=== PATIENT | female | born 1985 | race African-American/Black ===

== ENCOUNTER 2017-12-02 17:21 | Emergency (ER) | payer BC ==
--- NOTE | 2017-12-02 17:33 | PDOC ---
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 Pt then at home felt palpitations and had chest tightness Pt on brief exam: vss, lcta, ekg - Pt ordered for: labs, tsh, ekg Pt to proceed to the ED *DC/Admit/Observation/Transfer Diagnosis at time of Disposition: Palpitations - Referrals - Patient Instructions - Post Discharge Activity
[2017-12-02 17:35] VITALS: TEMP 98; BMI 24.0
[2017-12-02 17:58] LABS: BASO % 0.5 % (0-2.0); EOS % 0.4 % (0-4.5); HEMATOCRIT 36.8 % (32.4-45.2); HEMOGLOBIN 12.3 GM/dL (10.7-15.3); LYMPH % 25.3 % (8-40); MCHC 33.3 g/dl (32.0-36.0); MEAN CELL VOLUME 90.2 fl (80-96); MEAN PLT VOLUME 8.8 fl (7.5-11.1); MONO % 8.2 % (3.8-10.2); NEUT % 65.6 % (42.8-82.8); PLATELET COUNT 275 K/MM3 (134-434); RBC 4.08 M/mm3 (3.60-5.2); RDW 13.6 % (11.6-15.6); WHITE BLOOD COUNT 8.2 K/mm3 (4.0-10.0)
--- NOTE | 2017-12-02 18:07 | PDOC ---
History of Present Illness - General Chief Complaint: Palpitations Stated Complaint: PALPITATIONS Time Seen by Provider: 12/02/17 17:28 - History of Present Illness Initial Comments: 12/02/17 18:02 Ms. Espinoza is a 32 yo female w/ no pmh who presents for evaluation of weakness and palpitations she describes as feeling "like [her] heart would beat out of [ her] chest." She reports she has had these sporadically for a long time however never was concerned about them until she woke up yesterday morning at around 2am to urinate and had an episode when she got back into the bed. She presented to [facility] yesterday and was evaluated overnight, however left AMA as she reports they refused to have her see a assurance sourcing manager. She then went to [facility] and was given a mobile monitor however presented to ED when she had another episode of palpitations and was subsequently very weak at the time. She endorses having shortness of breath and chest tightness with these episodes however not in between. She has also had diarrhea approximately 7 time today. The patient denies headache and dizziness. Denies fever, nausea, vomit, and constipation. Denies dysuria, frequency, urgency and hematuria. Allergies: NKDA Past History - Past Medical History Allergies/Adverse Reactions: Allergies Allergy/AdvReac Type Severity Reaction Status Date / Time No Known Allergies Allergy Verified 12/02/17 17:28 COPD: No - Suicide/Smoking/Psychosocial Hx Smoking History: Never smoked Have you smoked in the past 12 months: No Information on smoking cessation initiated: No Hx Alcohol Use: No Drug/Substance Use Hx: No Substance Use Type: None Review of Systems - Review of Systems Comments:: 12/02/17 18:07 GENERAL/CONSTITUTIONAL: +Weakness as described. Subjective chills last night. No fever. HEAD, EYES, EARS, NOSE AND THROAT: No change in vision. No ear pain or discharge. No sore throat. CARDIOVASCULAR: +Cardiac symptoms intermittently as described above. RESPIRATORY: No cough, wheezing, or hemoptysis. GASTROINTESTINAL: +Diarrhea as described. No nausea, vomiting, or constipation. GENITOURINARY: No dysuria, frequency, or change in urination. MUSCULOSKELETAL: No joint or muscle swelling or pain. No neck or back pain. SKIN: No rash NEUROLOGIC: No headache, vertigo, or loss of consciousness. ENDOCRINE: No increased thirst. No abnormal weight change HEMATOLOGIC/LYMPHATIC: No anemia, easy bleeding, or history of blood clots. ALLERGIC/IMMUNOLOGIC: No hives or skin allergy. *Physical Exam - Vital Signs Last Vital Signs Temp Pulse Resp BP Pulse Ox 98.0 F 83 18 131/90 100 12/02/17 17:29 12/02/17 17:29 12/02/17 17:29 12/02/17 17:29 12/02/17 17:29 - Physical Exam Comments: 12/02/17 18:09 GENERAL: Awake, alert, and fully oriented, in no acute distress HEAD: No signs of trauma, normocephalic, atraumatic EYES: PERRLA, EOMI, sclera anicteric, conjunctiva clear ENT: Auricles normal inspection, hearing grossly normal, nares patent, oropharynx clear without exudates. Moist mucosa NECK: Normal ROM, supple, no lymphadenopathy, JVD, or masses LUNGS: No distress, speaks full sentences, clear to auscultation bilaterally HEART: Regular rate and rhythm, normal S1 and S2, no murmurs, rubs or gallops, peripheral pulses normal and equal bilaterally. ABDOMEN: Soft, nontender, normoactive bowel sounds. No guarding, no rebound. No masses EXTREMITIES: Normal inspection, Normal range of motion, no edema. No clubbing or cyanosis. NEUROLOGICAL: Cranial nerves II through XII grossly intact. Normal speech, normal gait, no focal sensorimotor deficits SKIN: Warm, Dry, normal turgor, no rashes or lesions noted. ED Treatment Course - LABORATORY CBC & Chemistry Diagram: 12/02/17 17:52 12/02/17 17:52 Medical Decision Making - Medical Decision Making 12/02/17 18:53 Ms. Espinoza is a 32 yo female w/ pmh as described who presents for evaluation of palpitations. Patient labs started and patient placed on monitor. Upon reinterview patient reports being told at previous hospital that her electrolytes were all low and describes being given potassium replacement. Patient signed out to Dr. Mcghee for further evaluation. *DC/Admit/Observation/Transfer Diagnosis at time of Disposition: Palpitations - Referrals - Patient Instructions - Post Discharge Activity
--- NOTE | 2017-12-02 18:32 | PDOC ---
Attending Attestation - HPI HPI: 12/02/17 19:59 The patient is a 32 year old female with no significant PMH who presents to the emergency department with weakness and palpitations she describes as feeling "like [her] heart would beat out of [her] chest." She reports she has had these sporadically for a long time however never was concerned about them until she woke up yesterday morning at around 2am to urinate and had an episode when she got back into the bed. She presented to [facility] yesterday and was evaluated overnight, however left AMA as she reports they refused to have her see a art education professor. She then went to [facility] and was given a mobile monitor however presented to ED when she had another episode of palpitations and was subsequently very weak at the time. She endorses having shortness of breath and chest tightness with these episodes however not in between. She has also had diarrhea approximately 7 time today. The patient denies any other symptoms or complaints. She denies fever, chills, vomit, and constipation. She denies headache and dizziness and other urinary symptoms. Documentation prepared by Carolyn Arias, acting as medical interpreter for Yana Palacios MD. <Carolyn Arias - Last Filed: 12/02/17 19:59> - Resident Resident Name: Yayo Higgins - ED Attending Attestation I have performed the following: I have examined & evaluated the patient, The case was reviewed & discussed with the resident, I agree w/resident's findings & plan, Exceptions are as noted - Physicial Exam PE: 12/04/17 16:59 Gen: aaox3, nad heart: +s1s2 reg dry mm lungs cta b/l abd: soft, nt/nd +bs ext: no c/c/e - Medical Decision Making 12/02/17 18:32 I, Dr. Yana Palacios, DO, attest that this document has been prepared under my direction and personally reviewed by me in its entirety. I further attest, that it accurately reflects all work, treatment, procedures and medical decision -making performed by me. 12/02/17 19:07 a/p: 32yo female with palpitations -admitted to [facility] last night for low potassium - AMA today and went to [facility] -currently on a halter from [facility] -was receiving iv and oral potassium per the patient -still with palpitations today and currently feeling them -will check labs, tsh, electrolytes, ekg, cxr -will monitor and reassess -pt has been having diarrhea which is most likely cause of low potassium 12/02/17 20:37 potassium normal mag normal elevated dimer - will order cta chest to r/o PE as cause of palpitations 12/03/17 00:28 pt states feeling better still with intermittent 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 or acute chest pathology tsh wnl discussed following up with [facility] discussed reasons to return to the ED pt currently tolerating PO in the ED <Yana Palacios - Last Filed: 12/04/17 16:59> Discharge Disposition <Carolyn Arias - Last Filed: 12/02/17 19:59> - Discharge Dispostion Decision to Admit order: No <Yana Palacios - Last Filed: 12/04/17 16:59> - Diagnosis Palpitations - Discharge Dispostion Disposition: HOME Condition at time of disposition: Stable - Referrals Referrals: Virgilio Campbell MD [Staff Physician] - Erik Medina MD [Staff Physician] - - Patient Instructions Printed Discharge Instructions: DI for Palpitations Additional Instructions: Please wear your Halter as instructed by the art education professor. Please make a follow up appointment with the art education professor you saw today. Please drink plenty of fluids. Please eat a banana a day. Please return to the ED with any further concerns or complaints. Heart Score/ECG Review - ECG Intrepretation Comment:: 12/02/17 19:06 sinus at 77, nl aaxis, poor r wave progression, t wave flattening, no acute st/ t wave findings <Yana Palacios - Last Filed: 12/04/17 16:59>
[2017-12-02] MEDS ORDERED: SODIUM CHLORIDE 0.9% 1000 ML INFUS.BAG IV ONE ×2 (18:51→18:52)
[2017-12-02 19:21] LABS: URINE APPEARANCE CLEAR; URINE BILIRUBIN NEGATIVE (<2.0 mg/dL); URINE BLOOD NEGATIVE (NEGATIVE); URINE COLOR STRAW; URINE GLUCOSE (UA) NEGATIVE (NEGATIVE); URINE KETONE NEGATIVE (NEGATIVE); URINE LEUK ESTERASE NEGATIVE (NEGATIVE); URINE NITRITE NEGATIVE (NEGATIVE); URINE PROTEIN NEGATIVE (NEGATIVE); URINE UROBILINOGEN NEGATIVE mg/dL (0.2-1.0)
[2017-12-02 19:25] LABS: HCG,QUALITATIVE URINE NEGATIVE
[2017-12-02 19:27] LABS: MAGNESIUM 2.3 mg/dL (1.8-2.4)
[2017-12-02 19:33] LABS: ALBUMIN 3.5 g/dl (3.4-5.0); ANION GAP 6 (8-16); BLOOD UREA NITROGEN 5 mg/dL (7-18); CALCIUM 8.6 mg/dL (8.5-10.1); CHLORIDE 105 mmol/L (98-107); CO2 27 mmol/L (21-32); CREATININE 0.7 mg/dL (0.55-1.02); GLUCOSE,RANDOM 102 mg/dL (74-106); POTASSIUM 4.5 mmol/L (3.5-5.1); SGOT/AST 15 U/L (15-37); SGPT/ALT 18 U/L (12-78); SODIUM 138 mmol/L (136-145)
[2017-12-02 19:42] LABS: ALK PHOS 52 U/L (45-117); BILIRUBIN,TOTAL 0.5 mg/dL (0.2-1.0); TOT PROT 7.6 g/dl (6.4-8.2)
--- NOTE | 2017-12-02 19:48 | PDOC ---
*Physical Exam - Vital Signs Last Vital Signs Temp Pulse Resp BP Pulse Ox 98.0 F 83 18 131/90 100 12/02/17 17:29 12/02/17 17:29 12/02/17 17:29 12/02/17 17:29 12/02/17 17:29 - Physical Exam Comments: 12/02/17 19:48 GENERAL: Awake, alert, and fully oriented, in no acute distress HEAD: No signs of trauma, normocephalic, atraumatic EYES: PERRLA, EOMI, sclera anicteric, conjunctiva clear ENT: Hearing grossly normal, nares patent, oropharynx clear without exudates. Moist mucosa NECK: Normal ROM, supple, no lymphadenopathy, JVD, or masses LUNGS: No distress, speaks full sentences, clear to auscultation bilaterally HEART: Regular rate and rhythm, normal S1 and S2, no murmurs, rubs or gallops, peripheral pulses normal and equal bilaterally. ABDOMEN: Soft, nontender, normoactive bowel sounds. No guarding, no rebound. No masses EXTREMITIES : Normal inspection, Normal range of motion, no edema. No clubbing or cyanosis. NEUROLOGICAL: Cranial nerves II through XII grossly intact. Normal speech, normal gait, no focal sensorimotor deficits SKIN: Warm, Dry, normal turgor, no rashes or lesions noted ED Treatment Course - LABORATORY CBC & Chemistry Diagram: 12/02/17 17:52 12/02/17 18:43 - ADDITIONAL ORDERS Additional order review: Laboratory Results 12/02/17 12/02/17 12/02/17 19:10 18:43 18:43 D-Dimer Sodium 138 Potassium 4.5 Chloride 105 Carbon Dioxide 27 Anion Gap 6 L BUN 5 L Creatinine 0.7 Creat Clearance w eGFR > 60 Random Glucose 102 Calcium 8.6 Magnesium 2.3 Total Bilirubin 0.5 AST 15 ALT 18 Alkaline Phosphatase 52 Creatine Kinase 61 Troponin I < 0.02 Total Protein 7.6 Albumin 3.5 Lipase 114 TSH 2.26 Urine Color Straw Urine Appearance Clear Urine pH 6.0 Ur Specific [place] 1.003 Urine Protein Negative Urine Glucose (UA) Negative Urine Ketones Negative Urine Blood Negative Urine Nitrite Negative Urine Bilirubin Negative Urine Urobilinogen Negative Ur Leukocyte Esterase Negative Urine HCG, Qual Negative 12/02/17 12/02/17 17:52 17:52 D-Dimer 682 H Sodium Cancelled Potassium Cancelled Chloride Cancelled Carbon Dioxide Cancelled Anion Gap Cancelled BUN Cancelled Creatinine Cancelled Creat Clearance w eGFR Cancelled Random Glucose Cancelled Calcium Cancelled Magnesium Total Bilirubin Cancelled AST Cancelled ALT Cancelled Alkaline Phosphatase Cancelled Creatine Kinase Cancelled Troponin I Cancelled Total Protein Cancelled Albumin Cancelled Lipase TSH Cancelled Urine Color Urine Appearance Urine pH Ur Specific [place] Urine Protein Urine Glucose (UA) Urine Ketones Urine Blood Urine Nitrite Urine Bilirubin Urine Urobilinogen Ur Leukocyte Esterase Urine HCG, Qual 12/02/17 17:52 RBC 4.08 MCV 90.2 MCHC 33.3 RDW 13.6 MPV 8.8 Neutrophils % 65.6 Lymphocytes % 25.3 Monocytes % 8.2 Eosinophils % 0.4 Basophils % 0.5 Medical Decision Making - Medical Decision Making 12/02/17 19:48 32 yo F w/ no pmh who p/w weakness and palpitations. Recently seen at [facility] yesterday for similiar presetntation, but left AMA before complete evaluation. Following AMA status patient went to to [facility] and was given a mobile holter monitor. Received handoff from Dr. Higgins. ED course notable for D-Dimer 682, and unremarkable CBC, CMP. Trop neg. Will obtain CTA CHEST. R/o PE. Patient denies h/o PE/DVT, recent travel, prolonged immobilization, surgery or trauma within 6-8 weeks, h/o malignancy or hypercoaguable disorder. On OCP. H/o elevated D-dimer (1 point elevation) 1-2 years ago with Neg f/u CTA CHEST. ED Course: 12/02/17 19:54 CTA CHEST: 12/03/17 00:28 CTA Chest : No acute pathology. No PE. Patient VSS. Ambulating without difficulty. No chest pain. Stable for d/c with return precautions. *DC/Admit/Observation/Transfer Diagnosis at time of Disposition: Palpitations - Discharge Dispostion Disposition: HOME Condition at time of disposition: Stable Decision to Admit order: No - Referrals - Patient Instructions Printed Discharge Instructions: DI for Palpitations Additional Instructions: Please return to the emergency department with any new or worsening symptoms or concerns. Please follow up with your primary care physician within 72 hours. Please follow up with cardiology within 1 week. - Post Discharge Activity - Attestations Physician Attestion: 12/03/17 00:30 I attest to the information provided in this note.
[2017-12-02 23:44] VITALS: BP 137/89; PULSE 74
--- NOTE | 2017-12-03 10:24 | EKG ---
Test Reason : Blood Pressure : / mmHG Vent. Rate : 077 BPM Atrial Rate : 077 BPM P-R Int : 142 ms QRS Dur : 076 ms QT Int : 394 ms P-R-T Axes : 062 -10 042 degrees QTc Int : 445 ms NORMAL SINUS RHYTHM POOR R WAVE PROGRESSION ABNORMAL ECG NO PREVIOUS ECGS AVAILABLE Confirmed by LEONA DONAHUE MD ([id number]) on 12/03/2017 10:23:53 AM Referred By: Confirmed By:LEONA DONAHUE MD
== END 2017-12-03 00:33 | disposition home or self-care (01) ==
LOC: JER 17:21
DX: R00.2 Palpitations (principal)
CPT/HCPCS: 36415; 71045-TC-FY; 71275-TC; 80053; 81003; 82550; 83690; 83735; 84443; 84484; 84703; 85025; 85379; 93005; 93010; 99284-25; J7030

== ENCOUNTER 2017-12-03 04:42 | Emergency (ER) | payer BC ==
[2017-12-03 05:01] VITALS: BMI 25.2
--- NOTE | 2017-12-03 05:18 | PDOC ---
History of Present Illness - General Chief Complaint: Palpitations Stated Complaint: CHEST PAIN Time Seen by Provider: 12/03/17 04:47 History Source: Patient - History of Present Illness Initial Comments: 12/03/17 05:11 32 year old female c/o palpitations.patient was seen in this ER yesterday ED course notable for D-Dimer 682, and unremarkable CBC, CMP. Trop neg, TSH negative . CTA chest negative. Patient reports that she hasn't been sleeping because the palpitations are constant. Recently seen at [facility] yesterday for similar presentation, but left AMA before complete evaluation. Following AMA status patient went to to [facility]([phone]) and was given a mobile holter monitor. Past History - Past Medical History Allergies/Adverse Reactions: Allergies Allergy/AdvReac Type Severity Reaction Status Date / Time No Known Allergies Allergy Verified 12/03/17 05:01 Home Medications: Ambulatory Orders NK [No Known Home Medication] 12/02/17 COPD: No - Suicide/Smoking/Psychosocial Hx Smoking History: Never smoked Have you smoked in the past 12 months: No Information on smoking cessation initiated: No Hx Alcohol Use: No Drug/Substance Use Hx: No Substance Use Type: None Review of Systems - Review of Systems Able to Perform ROS?: Yes Is the patient limited Telugu proficient: No Constitutional: No: Symptoms Reported, See HPI, Chills, Diaphoresis, Fever, Loss of Appetite, Malaise, Night Sweats, Weakness, Weight Stable, Unintentional Wgt. Loss, Unexplained wgt Loss, Other HEENTM: No: Symptoms Reported, See HPI, Eye Pain, Blurred Vision, Tearing, Recent change in vision, Double Vision, Cataracts, Ear Pain, Ocular Prothesis, Ear Discharge, Nose Pain, Nose Congestion, Tinnitus, Nose Bleeding, Hearing Loss , Throat Pain, Throat Swelling, Mouth Pain, Dental Problems, Difficulty Swallowing, Mouth Swelling, Other Respiratory: No: Symptoms reported, See HPI, Cough, Orthopnea, Shortness of Breath, SOB with Exertion, SOB at Rest, Stridor, Wheezing, Productive cough, Hemoptysis, Other Cardiac (ROS): Yes: Lightheadedness, Palpitations. No: Symptoms Reported, See HPI, Chest Pain, Edema, Irregular Heart Rate, Syncope, Chest Tightness, Other ABD/GI: No: Symptoms Reported, See HPI, Abdominal Distended, Abd. Pain w/ defecation, Blood Streaked Bowels, Constipated, Diarrhea, Difficulty Swallowing , Nausea, Poor Appetite, Poor Fluid Intake, Rectal Bleeding, Vomiting, Indigestion, Abdominal cramping, Tarry Stools, Other : No: Symptoms Reported, See HPI, Burning, Dysuria, Discharge, Frequency, Flank Pain, Hematuria, Incontinence, Pain, Urgency, Testicular Mass, Testicular Swelling, Lesions, Testicular Pain, Other *Physical Exam - Vital Signs Last Vital Signs Temp Pulse Resp BP Pulse Ox 98.1 F 80 18 127/85 100 12/03/17 04:55 12/03/17 06:21 12/03/17 06:21 12/03/17 06:21 12/03/17 06:21 - Physical Exam General Appearance: Yes: Appropriately Dressed Respiratory/Chest: positive: Lungs Clear, Normal Breath Sounds Cardiovascular: positive: Regular Rhythm, Regular Rate, S1, S2 Gastrointestinal/Abdominal: positive: Normal Bowel Sounds, Soft Musculoskeletal: positive: Normal Inspection Extremity: positive: Normal Capillary Refill, Normal Inspection, Normal Range of Motion Integumentary: positive: Normal Color, Dry, Warm Neurologic: positive: Fully Oriented, Alert, Normal Mood/Affect Heart Score/ECG Review - ECG Intrepretation Rhythm: Regular Rhythm Comment:: 12/03/17 05:56 86 BPM. ED Treatment Course - ADDITIONAL ORDERS Additional order review: Laboratory Results 12/03/17 05:15 Creatine Kinase 58 Troponin I < 0.02 Medical Decision Making - Medical Decision Making 12/03/17 06:13 will repeat second troponin. patient has a holter monitor on. cardiology office to be contact to evaluate the holter. patient appears anxious, reports that she has some stress at work. *DC/Admit/Observation/Transfer - Discharge Dispostion Condition at time of disposition: Fair - Referrals - Patient Instructions - Post Discharge Activity
--- NOTE | 2017-12-03 05:28 | PDOC ---
*Physical Exam - Vital Signs Last Vital Signs Temp Pulse Resp BP Pulse Ox 98.1 F 106 H 22 141/76 99 12/03/17 04:55 12/03/17 04:55 12/03/17 04:55 12/03/17 04:55 12/03/17 04:55 Medical Decision Making - Medical Decision Making 12/03/17 05:26 Pt seen by the Advanced Practice Provider under my direct supervision Ancillary studies reviewed I agree with plan as outlined by the Advanced Practice Provider ALEJANDRO Boyd *DC/Admit/Observation/Transfer - Discharge Dispostion Condition at time of disposition: Fair - Referrals - Patient Instructions - Post Discharge Activity
[2017-12-03] MEDS ORDERED: LORazepam 1 MG TABLET PO ONE (07:11)
[2017-12-03] MEDS ORDERED: LORazepam 0.5 MG TABLET ONE (08:02)
--- NOTE | 2017-12-03 08:19 | PDOC ---
*Physical Exam - Vital Signs Last Vital Signs Temp Pulse Resp BP Pulse Ox 98.1 F 80 18 127/85 100 12/03/17 04:55 12/03/17 06:21 12/03/17 06:21 12/03/17 06:21 12/03/17 06:21 ED Treatment Course - ADDITIONAL ORDERS Additional order review: Laboratory Results 12/03/17 05:15 Creatine Kinase 58 Troponin I < 0.02 - Medications Given in the ED: ED Medications Discontinued Medications Generic Name Dose Route Start Last Admin Trade Name Demarcus PRN Reason Stop Dose Admin Lorazepam 1 mg 12/03/17 07:11 12/03/17 08:00 Ativan - PO 12/03/17 07:12 1 mg ONCE ONE Administration Medical Decision Making - Medical Decision Making 12/03/17 07:21 Patient signed out to me at 7 AM 32-year-old female, no significant history here with palpitations. Patient was seen in ED yesterday for same and had negative workup including TSH and CTA. Prior to that visit, patient was seen at [facility], but ?eloped from ER for unclear reasons. Patient also seen by outside chemist assistant and had Holter placed and currently scheduled for follow-up visit next Wednesday. At present, pt stable with unremarkable exam. EKG performed and unremarkable. As per prior team, plan is to reassess and possibly contact patient's chemist assistant at 9am to ensure follow-up 12/03/17 08:23 Patient given dose of ativan in ED. Currently asymptomatic and remains stable on monitor. On further discussion, patient informs me that she has had palpitations in the past but never this constant. States up until a month ago she did have some stressors at work which has since resolved. No known history of anxiety. States she feels well enough to go home to follow up with her chemist assistant on Wednesday. *DC/Admit/Observation/Transfer Diagnosis at time of Disposition: Palpitations - Discharge Dispostion Disposition: HOME Condition at time of disposition: Improved - Prescriptions Prescriptions: LORazepam [Ativan] 1 mg PO BID PRN #6 tablet MDD 2 doses PRN Reason: Anxiety - Referrals - Patient Instructions Printed Discharge Instructions: DI for Palpitations Additional Instructions: The cause of your palpitations are unclear at this time as your workup in ED this visit and previous visit were unremarkable. Please follow-up with your chemist assistant at schedule appointment on Wednesday. Return to ER for any worsening of symptoms - Post Discharge Activity Forms/Work/School Notes: Back to Work
[2017-12-03 08:21] VITALS: BP 128/71; PULSE 81; TEMP 98
--- NOTE | 2017-12-03 10:14 | EKG ---
Test Reason : Blood Pressure : / mmHG Vent. Rate : 086 BPM Atrial Rate : 086 BPM P-R Int : 146 ms QRS Dur : 072 ms QT Int : 374 ms P-R-T Axes : 073 -10 041 degrees QTc Int : 447 ms NORMAL SINUS RHYTHM LEFT ATRIAL ENLARGEMENT ABNORMAL ECG WHEN COMPARED WITH ECG OF 02-DEC-2017 17:29, NO SIGNIFICANT CHANGE WAS FOUND Confirmed by LEONA DONAHUE MD ([id number]) on 12/03/2017 10:14:06 AM Referred By: Confirmed By:LEONA DONAHUE MD
== END 2017-12-03 08:28 | disposition home or self-care (01) ==
LOC: JER 04:42
DX: R00.2 Palpitations (principal)
CPT/HCPCS: 36415; 82550; 84484; 93005; 93010; 99285-25

== ENCOUNTER 2018-01-30 20:30 | Emergency (ER) | payer BC ==
[2018-01-30 20:37] VITALS: BP 140/77; PULSE 88; TEMP 98.3; BMI 22.3
[2018-01-30] MEDS ORDERED: diphenhydrAMINE HCL 25 MG CAPSULE (FP) PO ONE ×2 (22:40→22:58)
--- NOTE | 2018-01-30 22:44 | PDOC ---
History of Present Illness - General Chief Complaint: Psychiatric Stated Complaint: FATIGUE Time Seen by Provider: 01/30/18 22:20 History Source: Patient Exam Limitations: No Limitations - History of Present Illness Initial Comments: 01/30/18 22:42 Patient is a 33-year-old female with history of anxiety c/o anxiety symptoms which include tingling in bilateral upper and lower extremities, GI distress, vomited 4 today, weakness. States she woke up and was fine and was doing well today until about 1:00 PM, when she went to take a shower, turned on the water and felt a heat from her legs going up her body to her head. States she took her Lexapro this morning at her scheduled time. Also took her lorazepam when the symptoms started, however she vomited 10 minutes after taking the pill so is unsure that she got a dose of medication. Symptoms of anxiety still persists and so she presents here for evaluation. She is concerned that this is happening because she is compliant with her medication and make her appointment. States she saw her psychiatrist 3 days ago. Denies any suicidal or homicidal ideation. PMD: Dr. Dominguez PMHX: anxiety PSOCHX: neg drugs, etoh, cig ALL: NKDA GENERAL/CONSTITUTIONAL: [No fever or chills. (+) weakness. No weight change.] HEAD, EYES, EARS, NOSE AND THROAT: [No change in vision. No ear pain or discharge. No sore throat.] CARDIOVASCULAR: [No chest pain or shortness of breath.] RESPIRATORY: [No cough, wheezing, or hemoptysis.] GASTROINTESTINAL: [No nausea, vomiting, diarrhea or constipation. No rectal bleeding.] GENITOURINARY: [No dysuria, frequency, or change in urination.] MUSCULOSKELETAL: [No joint or muscle swelling or pain. No neck or back pain.] SKIN AND BREASTS: [No rash or easy bruising.] NEUROLOGIC: [No headache, vertigo, loss of consciousness, or loss of sensation.] PSYCHIATRIC: (+)_ depression or anxiety.] ENDOCRINE: [No increased thirst. No abnormal weight change.] HEMATOLOGIC/LYMPHATIC: [No anemia, easy bleeding, or history of blood clots.] ALLERGIC/IMMUNOLOGIC: [No hives or skin allergy. No latex allergy.] GENERAL: [The patient is awake, alert, and fully oriented, in mild distress, rubbing legs, breathing hard and fast.] HEAD: [Normal with no signs of trauma.] EYES: [Pupils equal, round and reactive to light, extraocular movements intact, sclera anicteric, conjunctiva clear.] ENT: [Ears normal, nares patent, oropharynx clear without exudates. Moist mucous membranes.] NECK: [Normal range of motion, supple without lymphadenopathy, JVD, or masses.] LUNGS: [Breath sounds equal, clear to auscultation bilaterally. No wheezes, and no crackles.] HEART: [Regular rate and rhythm, normal S1 and S2 without murmur, rub.] ABDOMEN: [Soft, nontender, normoactive bowel sounds. No guarding, no rebound. No masses.] EXTREMITIES: [Normal range of motion, no edema. No clubbing or cyanosis. No cords, erythema, or tenderness.] NEUROLOGICAL: [Cranial nerves II through XII grossly intact. Normal speech, normal gait.] PSYCH: anxious mood, normal affect.] SKIN: [Warm, Dry, normal turgor, no rashes or lesions noted.] Past History - Past Medical History Allergies/Adverse Reactions: Allergies Allergy/AdvReac Type Severity Reaction Status Date / Time No Known Allergies Allergy Verified 01/30/18 20:33 Home Medications: Ambulatory Orders LORazepam [Ativan] 1 mg PO BID #8 tablet MDD 2 doses 12/03/17 LORazepam [Ativan] 1 mg PO BID PRN #6 tablet MDD 2 doses 12/03/17 Escitalopram Oxalate [Lexapro -] 5 mg PO DAILY 01/30/18 COPD: No DVT: No Psychiatric Problems: Yes (anxiety /panic attack) - Suicide/Smoking/Psychosocial Hx Smoking History: Never smoked Have you smoked in the past 12 months: No Hx Alcohol Use: No Drug/Substance Use Hx: No Substance Use Type: None *Physical Exam - Vital Signs Last Vital Signs Temp Pulse Resp BP Pulse Ox 98.3 F 88 18 140/77 100 01/30/18 20:34 01/30/18 20:34 01/30/18 20:34 01/30/18 20:34 01/30/18 20:34 Medical Decision Making - Medical Decision Making 01/30/18 22:42 Patient is a 33-year-old female with history of anxiety c/o anxiety symptoms which include tingling in bilateral upper and lower extremities, GI distress, vomited 4 today. ativan 1mg IM and benadryl 25mg po will wait for her to feel improved then discharge. 01/30/18 23:44 Patient is feeling betters states the anxiety feeling are improved. Denies any SI or HI. will discharge home I discussed the physical exam findings, ancillary test results and final diagnoses with the patient. I answered all of the patient's questions. The patient was satisfied with the care received and felt comfortable with the discharge plan and treatment plan. The Patient agrees to follow up with the primary care physician within 24-72 hours *DC/Admit/Observation/Transfer Diagnosis at time of Disposition: Generalized anxiety disorder with panic attacks - Discharge Dispostion Disposition: HOME Condition at time of disposition: Stable - Referrals - Patient Instructions Printed Discharge Instructions: DI for Anxiety -- Adult Additional Instructions: Your Discharge Instructions: You must call primary care physician within 24 hours to arrange follow-up. Return to the Emergency Department with any new, persistent or worsening symptoms, for fever, chills, SOB, dizziness or any other concerning changes that may occur. - Post Discharge Activity
[2018-01-30] MEDS ORDERED: LORazepam 2 MG/ML SDV VIAL ONE (22:58)
== END 2018-01-30 23:50 | disposition home or self-care (01) ==
LOC: JER 20:30
PROC: 3E023NZ Introduction of Analgesics, Hypnotics, Sedatives into Muscle, Percutaneous Approach (ICD-10-PCS; principal; 2018-01-30)
DX: F41.1 Generalized anxiety disorder (principal); F41.0 Panic disorder [episodic paroxysmal anxiety]
CPT/HCPCS: 99281-25

== ENCOUNTER 2018-02-02 01:32 | Emergency (ER) | payer BC ==
[2018-02-02 01:39] VITALS: BP 131/95; PULSE 102; TEMP 98.5; BMI 21.9
--- NOTE | 2018-02-02 02:15 | PDOC ---
History of Present Illness - General Chief Complaint: Lightheaded Stated Complaint: PAIN,LIGHTHEADEDNESS Time Seen by Provider: 02/02/18 02:14 Past History - Past Medical History Allergies/Adverse Reactions: Allergies Allergy/AdvReac Type Severity Reaction Status Date / Time No Known Allergies Allergy Verified 02/02/18 01:37 Home Medications: Ambulatory Orders LORazepam [Ativan] 1 mg PO BID #8 tablet MDD 2 doses 12/03/17 LORazepam [Ativan] 1 mg PO BID PRN #6 tablet MDD 2 doses 12/03/17 Escitalopram Oxalate [Lexapro -] 5 mg PO DAILY 01/30/18 COPD: No DVT: No Psychiatric Problems: Yes (anxiety /panic attack) - Suicide/Smoking/Psychosocial Hx Smoking History: Never smoked Have you smoked in the past 12 months: No Hx Alcohol Use: No Drug/Substance Use Hx: No Substance Use Type: None *Physical Exam - Vital Signs Last Vital Signs Temp Pulse Resp BP Pulse Ox 98.5 F 102 H 20 131/95 100 02/02/18 01:34 02/02/18 01:34 02/02/18 01:34 02/02/18 01:34 02/02/18 01:34
--- NOTE | 2018-02-02 02:52 | PDOC ---
Attending Attestation - HPI HPI: 02/02/18 03:20 The patient is a 33 year old female, with a significant past medical history of DVT (on Eliquis) major depressive disorder and anxiety, who presents to the emergency department with, chest pain. As per patient, she was sleeping when she was woken up by chest pain and shortness of breath. She described her chest pain as a burning sensation which resolved after 10 minutes. She reports associated palpitations. She denies similar episodes. She denies recent fevers, chills, headache or dizziness. She denies recent nausea, vomit, diarrhea or constipation. She denies recent dysuria, frequency, urgency or hematuria. Allergies: NKA Past surgical history: None reported. Social history: Nonsmoker. Denies EtOH use and recreational drug use. Primary Care Physician: Dr. Dominguez <Oscar Pagan - Last Filed: 02/02/18 03:20> - Resident Resident Name: Michelle Ferguson - ED Attending Attestation I have performed the following: I have examined & evaluated the patient, The case was reviewed & discussed with the resident, I agree w/resident's findings & plan, Exceptions are as noted - Physicial Exam PE: 02/02/18 19:38 *Physical Exam General Appearance: Yes: Appropriately Dressed. No: Apparent Distress, Intoxicated HEENT: positive: EOMI, KIZZY, Normal ENT Inspection, Normal Voice, TMs Normal, Pharynx Normal. negative: Pale Conjunctivae, Photophobia, Scleral Icterus (R), Scleral Icterus (L) Neck: positive: Trachea midline, Normal Thyroid, Supple. negative: Tender, Rigid, Carotid bruit, Stridor, Lymphadenopathy (R), Lymphadenopathy (L), Thyromegaly Respiratory/Chest: positive: Lungs Clear, Normal Breath Sounds. negative: Chest Tender, Respiratory Distress, Accessory Muscle Use, Labored Respiration, RES, Crackles, Rales, Rhonchi, Stridor, Wheezing, Dullness Cardiovascular: positive: Regular Rhythm, Regular Rate, S1, S2. negative: Edema , JVD, Murmur, Bradycardia, Tachycardia Vascular Pulses: Dorsalis-Pedis (R): 2+, Doralis-Pedis (L): 2+ Gastrointestinal/Abdominal: positive: Normal Bowel Sounds, Flat, Soft. negative : Tender, Organomegaly, Pulsatile Mass, Increased Bowel Sounds, Decreased BS, Distended, Guarding, Rebound, Hernia, Hepatomegaly, Spleenomegaly Lymphatic: negative: Adenopathy, Tenderness Musculoskeletal: positive: Normal Inspection. negative: CVA Tenderness, Decreased Range of Motion Extremity: positive: Normal Capillary Refill, Normal Inspection, Normal Range of Motion, Pelvis Stable. negative: Tender, Pedal Edema, Swelling, Erythema Integumentary: positive: Normal Color, Dry, Warm. negative: Cyanotic, Erythema , Jaundice, Rash Neurologic: positive: public health representative II-XII NML intact, Fully Oriented, Alert, Normal Mood/ Affect, Motor Strength 5/5. negative: EOM Palsy, Facial Droop, Sensory Deficit - Medical Decision Making 02/02/18 19:38 Pt was treated and released <Al Shah - Last Filed: 02/02/18 19:38> Attestations - Attestations 02/02/18 03:20 Documentation prepared by Oscar Pagan, acting as medical writer for Al Shah DO. <Oscar Pagan - Last Filed: 02/02/18 03:20>
--- NOTE | 2018-02-02 02:53 | PDOC ---
History of Present Illness - General Chief Complaint: Lightheaded Stated Complaint: PAIN,LIGHTHEADEDNESS Time Seen by Provider: 02/02/18 02:14 History Source: Patient - History of Present Illness Initial Comments: 02/02/18 02:53 33 year old female presents to ED c/o chest pain. Patient states she was sleeping when she suddenly woke up and was short of breath and felt a burning pain over her chest that resolved withing 10 minutes. Endorses palpitations, denies lightheadedness. No previous similar events, though notes a h/o panic attacks in which she felt palpitations and dyspneic. Of note patient was recently diagnosed DVT at an outside institution and states she is on Eliquis. Patient's symptoms resolved by the time of presentation to the ED however she wished to be evaluated because she is concerned that the Eliquis is interacting with her anti-anxiety medications. LMP was last month and patient denies possibility of . As per EMR patient was evaluated at our institution on 01/30/18 for a complaint of numbness and tingling in her B/L LE. Patient was given Ativan and Benadryl and discharged home. Patient denies current chest pain, shortness of breath. Patient denies abdominal pain, nausea/vomiting, diarrhea/constipation, dysuria/ hematuria. Patient denies fevers/chills, recent travel or sick contacts. Past History - Past Medical History Allergies/Adverse Reactions: Allergies Allergy/AdvReac Type Severity Reaction Status Date / Time No Known Allergies Allergy Verified 02/02/18 05:35 Home Medications: Ambulatory Orders LORazepam [Ativan] 1 mg PO BID #8 tablet MDD 2 doses 12/03/17 LORazepam [Ativan] 1 mg PO BID PRN #6 tablet MDD 2 doses 12/03/17 Escitalopram Oxalate [Lexapro -] 5 mg PO DAILY 01/30/18 COPD: No DVT: No Psychiatric Problems: Yes (anxiety /panic attack) - Suicide/Smoking/Psychosocial Hx Smoking History: Never smoked Have you smoked in the past 12 months: No Hx Alcohol Use: No Drug/Substance Use Hx: No Substance Use Type: None Review of Systems - Review of Systems Constitutional: No: Chills, Fever HEENTM: No: Blurred Vision Respiratory: Yes: Shortness of Breath. No: Cough, SOB at Rest, Stridor, Wheezing Cardiac (ROS): Yes: Chest Pain, Lightheadedness, Palpitations. No: Syncope ABD/GI: No: Constipated, Diarrhea, Nausea, Vomiting *Physical Exam - Vital Signs Last Vital Signs Temp Pulse Resp BP Pulse Ox 98.5 F 102 H 20 131/95 100 02/02/18 01:34 02/02/18 01:34 02/02/18 01:34 02/02/18 01:34 02/02/18 01:34 - Physical Exam General Appearance: Yes: Nourished, Appropriately Dressed HEENT: positive: EOMI, KIZZY, Normal ENT Inspection Neck: positive: Trachea midline, Supple Respiratory/Chest: positive: Lungs Clear Cardiovascular: positive: S1, S2. negative: Edema, JVD, Murmur Vascular Pulses: Dorsalis-Pedis (R): 2+, Doralis-Pedis (L): 2+ Gastrointestinal/Abdominal: positive: Normal Bowel Sounds, Soft Musculoskeletal: negative: CVA Tenderness (R), CVA Tenderness (L) Extremity: positive: Normal Capillary Refill, Normal Inspection Integumentary: positive: Normal Color, Dry, Warm Neurologic: positive: Fully Oriented, Alert ED Treatment Course - LABORATORY CBC & Chemistry Diagram: 02/02/18 04:26 02/02/18 04:26 Medical Decision Making - Medical Decision Making 02/02/18 03:49 Patient is a 33 year old female who presents c/o chest pain. Recently diagnosed superficial DVT, on Eliquis. DVT studies at our institution negative for DVT. VS unremarkable. Low clinical suspicion for PE. Will obtain basic labs to r/o electrolyte abnormalities and anemia. EKG, Troponin x1. Reassess. 02/02/18 04:34 Patient resting comfortably. Continues to deny active chest pain. Labs, CXR pending. 02/02/18 05:40 Troponin (-) x1. EKG shows NSR, HR 70, no GABRIELA/STD/TWI - non ischemic. Patient refusing XR because she is concerned about radiation exposure and states she feels a cat scan would be more useful. Patient counseled on increased radiation exposure with CT scan. Patient to be discharged home with PMD follow-up. I discussed the physical exam findings, ancillary test results and final diagnoses with the patient. I answered all of the patient's questions. The patient was satisfied with the care received and felt comfortable with the discharge plan and treatment plan. The patient will return to the Emergency Department with any new, persistent or worsening symptoms. *DC/Admit/Observation/Transfer Diagnosis at time of Disposition: Chest pain - Discharge Dispostion Disposition: HOME Condition at time of disposition: Good Decision to Admit order: No - Referrals Referrals: Erik Medina MD [Staff Physician] - - Patient Instructions Printed Discharge Instructions: DI for Atypical Chest Pain Additional Instructions: Please follow up with your primary care doctor in the next 2-3 days. A referral has been provided to you should you wish to change primary care providers. Return to the ED for any new/worsening/concerning symptoms. - Post Discharge Activity
[2018-02-02 05:15] LABS: BASO % 1.1 % (0-2.0); EOS % 0.3 % (0-4.5); HEMOGLOBIN 12.7 GM/dL (10.7-15.3); LYMPH % 30.2 % (8-40); MCH 30.4 pg (25.7-33.7); MCHC 33.4 g/dl (32.0-36.0); MEAN CELL VOLUME 91.2 fl (80-96); MEAN PLT VOLUME 9.9 fl (7.5-11.1); MONO % 9.9 % (3.8-10.2); NEUT % 58.5 % (42.8-82.8); PLATELET COUNT 244 K/MM3 (134-434); RBC 4.16 M/mm3 (3.60-5.2); RDW 13.9 % (11.6-15.6); WHITE BLOOD COUNT 5.4 K/mm3 (4.0-10.0)
[2018-02-02 05:17] LABS: ALBUMIN 3.7 g/dl (3.4-5.0); ANION GAP 6 (8-16); BILIRUBIN,TOTAL 0.8 mg/dL (0.2-1.0); BLOOD UREA NITROGEN 8 mg/dL (7-18); CALCIUM 9.3 mg/dL (8.5-10.1); CHLORIDE 106 mmol/L (98-107); CO2 27 mmol/L (21-32); CREATININE 0.8 mg/dL (0.55-1.02); GLUCOSE,RANDOM 83 mg/dL (74-106); POTASSIUM 4.6 mmol/L (3.5-5.1); SGOT/AST 14 U/L (15-37); SGPT/ALT 22 U/L (12-78); SODIUM 139 mmol/L (136-145); TOT PROT 7.5 g/dl (6.4-8.2)
[2018-02-02 05:19] LABS: ALK PHOS 57 U/L (45-117)
--- NOTE | 2018-02-02 09:54 | EKG ---
Test Reason : Blood Pressure : / mmHG Vent. Rate : 070 BPM Atrial Rate : 070 BPM P-R Int : 142 ms QRS Dur : 074 ms QT Int : 408 ms P-R-T Axes : 064 008 035 degrees QTc Int : 440 ms NORMAL SINUS RHYTHM NORMAL ECG WHEN COMPARED WITH ECG OF 03-DEC-2017 05:00, NO SIGNIFICANT CHANGE WAS FOUND Confirmed by CASIE SANTOS MD ([id number]) on 02/02/2018 9:53:32 AM Referred By: Confirmed By:CASIE SANTOS MD
== END 2018-02-02 06:05 | disposition home or self-care (01) ==
LOC: JER 01:32
DX: R07.9 Chest pain, unspecified (principal); F33.9 Major depressive disorder, recurrent, unspecified; F41.9 Anxiety disorder, unspecified; I82.409 Acute embolism and thrombosis of unspecified deep veins of unspecified lower extremity; Z79.01 Long term (current) use of anticoagulants
CPT/HCPCS: 36415; 80053; 84484; 84702; 84703; 85025; 93005; 93010; 93970-TC; 99282-25

== ENCOUNTER 2020-10-15 23:15 | Emergency (ER) | payer BC ==
[2020-10-15 23:59] VITALS: BP 135/91; PULSE 92; TEMP 98.5; BMI 23.3
[2020-10-16 01:22] LABS: BLOOD UREA NITROGEN 11.7 mg/dL (7-18); CALCIUM 9.3 mg/dL (8.5-10.1)
[2020-10-16] MEDS ORDERED: ACETAMINOPHEN 325 MG TABLET (FP) PO ONE (01:23)
[2020-10-16 01:26] LABS: CREATININE 0.8 mg/dL (0.55-1.3)
[2020-10-16] MEDS ORDERED: ACETAMINOPHEN 325 MG TABLET (FP) ONE (01:52)
== END 2020-10-16 02:21 | disposition home or self-care (01) ==
LOC: JER 23:15
DX: R20.9 Unspecified disturbances of skin sensation (principal); M62.838 Other muscle spasm
CPT/HCPCS: 36415; 80048; 99284-25